=== PATIENT | female | born 1990 | race Caucasian/White ===

== ENCOUNTER → 2018-11-26 12:29 | Outpatient (CLI) | payer OTHER, SELFPAY ==
[2018-11-26 13:02] LABS: Add Manual Diff / Slide Review NO; Basophils Absolute Auto 100 /uL (0-100); Basophils Percent Auto 0.5 % (0-2); Eosinophils Absolute Auto 100 /uL (0-450); Eosinophils Percent Auto 0.5 % (2-4); Hematocrit 36.1 % (36-46); Hemoglobin 12.4 g/dL (12.0-16.0); Lymphocytes Absolute Auto 2700 /uL (1100-4500); Lymphocytes Percent Auto 24.6 % (25-40); Mean Corpuscular HGB Conc 34.3 % (30-36); Mean Corpuscular Hemoglobin 29.9 PG (26-34); Mean Corpuscular Volume 87.2 fL (80-100); Monocytes Absolute Auto 700 /uL (0-900); Monocytes Percent Auto 6.4 % (3-14); Neutrophils Absolute Auto 7400 /uL (1500-7000); Platelet Count 307 X10^3/uL (150-400); Red Blood Cell Count 4.14 X10^6/uL (4.0-5.2); Red Cell Distribution Width 12.7 % (11.6-14.8); White Blood Cell Count 10.9 X10^3/uL (4.5-11.0)
[2018-11-26 14:05] LABS: Appearance Urine UA CLEAR; Bilirubin Urine UA NEGATIVE (NEGATIVE); Color Urine UA YELLOW; Glucose Urine UA NEGATIVE (Negative); Ketones Urine UA 1+ (NEGATIVE); Leukocyte Esterase Urine UA NEGATIVE (NEGATIVE); Nitrite Urine UA NEGATIVE (Negative); Occult Blood Urine UA 2+ (Negative); Protein Urine UA NEGATIVE (Negative); Specific Gravity Urine UA <=1.005 (1.000-1.035); Urobilinogen Urine UA 0.2 E.U./dL (0.2)
[2018-11-26 14:06] LABS: pH Urine UA 5.5 (4.5-8.0)
[2018-11-26 15:51] LABS: Hepatitis B Surface Antigen NEGATIVE s/c (NEGATIVE); Rubella Antibody IgG 20.4 IU/mL (>15)
[2018-11-26 16:48] LABS: HIV 1 & 2 Ab/Ag 4th Gen Combo NEGATIVE (NEGATIVE); Hep C Virus Ab w/Reflex Quant NEGATIVE s/c (NEGATIVE)
[2018-11-30 14:23] LABS: RPR Screen Nonreactive (Nonreactive)
== END ==
PROVIDERS: Visit Provider Obstetrics & Gynecology
DX: Z34.01 Encounter for supervision of normal first pregnancy, first trimester (principal)
CPT/HCPCS: 36415; 80055; 81003; 86787; 86803; 86850; 86900; 86901; 87086; 87389

== ENCOUNTER → 2019-01-26 14:37 | Outpatient (CLI) | payer OTHER, SELFPAY ==
[2019-02-01 20:35] LABS: AFP, Serum 27.2 ng/mL; Brief History NOT GIVEN; Calc Gestational Age 15.7; Est Date Determined by free009; Maternal Weight 181 (LBS) lbs; Mother Ethnic Origin free010; Number of Fetuses free011; Prev Pregnancies Down Syndrome free016
== END ==
PROVIDERS: Visit Provider Obstetrics & Gynecology
DX: Z34.02 Encounter for supervision of normal first pregnancy, second trimester (principal); Z3A.15 15 weeks gestation of pregnancy
CPT/HCPCS: 36415; 82105

== ENCOUNTER → 2019-03-04 12:11 | Outpatient (CLI) | payer OTHER, SELFPAY ==
--- NOTE | 2019-03-04 12:12 | DI.US.S_ITS ---
PROCEDURE: US OB >= 14 WEEKS FETUS INDICATIONS: ANATOMY SCAN OUTSIDE/PRIOR DATING DATA: Last menstrual period (LMP): Unknown. LMP-based estimated date of delivery (LORRI): Unknown. First dating scan (date and location): 11/26/18. Estimated date of delivery (LORRI) from first dating scan: 07/15/19. TECHNIQUE: Real-time scanning was performed of the fetus, with image documentation and biometric measurements. Endovaginal scanning: Not performed COMPARISON: [facility], , OB <= 14 WEEKS FETUS, 12/22/2018, 14:10. [facility], , OB <= 14 WEEKS FETUS, 11/26/2018, 12:05. FINDINGS: General: A single living intrauterine gestation is present. Presentation: Vertex. Placenta: Placental position is posterior, without previa. Amniotic fluid index: 15.2 cm, normal range is 5-24 cm. heart rate: 149 beats per minute. Maternal cervical canal: 3.3 cm long. Normal lower limit is 2.5 cm. biometrics: Biparietal diameter: 5.4 cm, 22 weeks 2 days Head circumference: 19.4 cm, 21 weeks 5 days Abdominal circumference: 17.0 cm, 22 weeks zero days Femur length: 3.6 cm, 21 weeks 3 days Estimated gestational age from initial scan: 21 weeks zero days Composite gestational age from present scan: 21 weeks 5 days Estimated weight and percentile: 447 g, 83rd percentile Measurement variability for biometric dating: +/- 7 days from 14 weeks to 15 weeks 6 days gestation, +/- 10 days from 16 weeks to 21 weeks 6 days gestation, +/- 2 weeks from 22 weeks to 27 weeks 6 days gestation, +/- 3 weeks for 28 weeks gestation or later. weight reference: 4500 g or EFW >90/95% is considered macrosomia or large for gestational age. EFW <10% is small for gestational age. EFW 5% or less is considered intra-uterine growth restriction. Anatomic survey: Neuro: Ventricles are non-dilated at less than 10 mm. Cisterna magna is normal at 3-11 mm. Cerebellum is normal in size and morphology. Nuchal skin fold: Normal at less than 6 mm between 14-21 weeks gestational age. Face: Nose and lips within normal limits. However the facial profile not well-seen due to gestational position. Spine: No evidence for spina bifida. Heart: 4-chambered heart is present, with normal ventricular outflow tracts. Diaphragm: Diaphragm is intact. Stomach: Left-sided stomach is present. Kidneys: No hydronephrosis. Normal is less than 5 mm in 2nd trimester, less than 7 mm in 3rd trimester. Cord: 3-vessel cord has orthotopic insertion. Bladder: Normal in size. Extremities: All 4 extremities identified. IMPRESSION: Single living intrauterine fetus in vertex presentation demonstrating expected interval growth as above facial profile not well-seen due to gestational position . Recommend followup Remaining anatomic survey within normal limits. Dictated by: Elkin Thakur M.D. on 03/04/2019 at 17:03 Approved by: Elkin Thakur M.D. on 03/04/2019 at 17:07
== END ==
PROVIDERS: Visit Provider Obstetrics & Gynecology
DX: Z34.02 Encounter for supervision of normal first pregnancy, second trimester (principal); Z3A.21 21 weeks gestation of pregnancy
CPT/HCPCS: 76811

== ENCOUNTER → 2019-03-09 13:08 | Outpatient (CLI) | payer OTHER, SELFPAY ==
--- NOTE | 2019-03-09 13:09 | DI.US.S_ITS ---
PROCEDURE: US OB FOLLOW UP INDICATIONS: F/U face from anatomy scan OUTSIDE/PRIOR DATING DATA: Last menstrual period (LMP): Not available. LMP-based estimated date of delivery (LORRI): Not available. First dating scan (date and location): 11/26/18. Estimated date of delivery (LORRI) from first dating scan: 07/15/19. TECHNIQUE: Real-time scanning was performed of the fetus, with image documentation. Endovaginal scanning: Not needed COMPARISON: None. FINDINGS: A single living intrauterine gestation is present. Presentation: Breech. Placenta: Placental position is fundal posterior, without previa. Amniotic fluid index: 14.2 cm, normal range is 5-24 cm. heart rate: 140 beats per minute. Estimated gestational age from initial scan: 21 weeks 5 days. Completion of anatomic survey, excellent visualization of the facial area not well seen previously. IMPRESSION: Completion of anatomic survey, not well-seen on the prior study from 5 days ago. Dictated by: Uzair Mitchell M.D. on 03/09/2019 at 16:59 Approved by: Uzair Mitchell M.D. on 03/09/2019 at 17:00
== END ==
PROVIDERS: Visit Provider Obstetrics & Gynecology
DX: Z36.2 Encounter for other antenatal screening follow-up (principal); Z3A.21 21 weeks gestation of pregnancy
CPT/HCPCS: 76816

== ENCOUNTER → 2019-04-15 10:13 | Outpatient (CLI) | payer OTHER, SELFPAY ==
[2019-04-15 11:31] LABS: Hematocrit 33.7 % (36-46); Hemoglobin 11.3 g/dL (12.0-16.0)
[2019-04-15 11:45] LABS: GTT (PREG) 1 Hour PP 50gm Dose 85 mg/dL (76-139)
== END ==
PROVIDERS: Referring Provider Obstetrics & Gynecology; Visit Provider Obstetrics & Gynecology
DX: Z34.02 Encounter for supervision of normal first pregnancy, second trimester (principal); Z3A.27 27 weeks gestation of pregnancy
CPT/HCPCS: 36415; 82950; 85014; 85018

== ENCOUNTER → 2019-06-15 11:09 | Outpatient (CLI) | payer OTHER, SELFPAY ==
[2019-06-16 09:38] LABS: Strep Grp B PCR NEG for Grp B Strep
== END ==
PROVIDERS: Visit Provider Obstetrics & Gynecology
DX: Z34.03 Encounter for supervision of normal first pregnancy, third trimester (principal); Z3A.35 35 weeks gestation of pregnancy
CPT/HCPCS: 87653

== ENCOUNTER → 2019-06-15 12:32 | Outpatient (CLI) | payer OTHER, SELFPAY ==
--- NOTE | 2019-06-15 12:34 | DI.US.S_ITS ---
PROCEDURE: US PERIPH VENOUS LOW EXTREM RT INDICATIONS: RIGHT LEG EDEMA TECHNIQUE: Real-time imaging, as well as color and pulse Doppler interrogation, were performed of the lower extremity deep veins from the inguinal ligament to the popliteal fossa. COMPARISON: None. FINDINGS: The common femoral, femoral and popliteal veins are normally compressible, and free of intraluminal thrombus. Color and pulse Doppler demonstrate normal phasic intraluminal flow. There is normal augmentation response to distal compression maneuver. IMPRESSION: No evidence of a right lower extremity deep vein thrombosis. Dictated by: Gus Watson M.D. on 06/15/2019 at 12:12 Approved by: Gus Watson M.D. on 06/15/2019 at 12:12
== END ==
PROVIDERS: Referring Provider Obstetrics & Gynecology; Visit Provider Obstetrics & Gynecology
DX: O99.89 Other specified diseases and conditions complicating pregnancy, childbirth and the puerperium (principal); M79.89 Other specified soft tissue disorders; Z3A.35 35 weeks gestation of pregnancy
CPT/HCPCS: 87653; 93971

== ENCOUNTER 2019-06-24 08:28 | Outpatient (CLI) | payer OTHER, SELFPAY ==
--- NOTE | 2019-06-27 17:17 | PM.OBTRLD ---
Visit Information Visit Information Date of evaluation: 06/24/19 Primary OB Provider: Tonya Fan Reason for Evaluation: Yes non-stress test Comments/Additional reasons for admission: Sent for NST due to question of decel vs. marked variability, with no obstetric complaints and an otherwise reassuring BPP. PFSH Social History marital status: Smoking Status: Never smoker Evaluation Evaluation Baseline heart rate: 120 Variability: Moderate (11-25) monitor accelerations: Present monitor decelerations: Absent Category of Tracing: I Diagnosis, Plan/Disposition Plan/Disposition Plan: Home with routine follow up. OB Disposition: home
== END 2019-06-24 09:10 | disposition home or self-care (01) ==
LOC: LABOR 09:02 → OB 06-25 09:25
PROVIDERS: Referring Provider Obstetrics & Gynecology; Visit Provider Obstetrics & Gynecology
DX: O32.1XX0 Maternal care for breech presentation, not applicable or unspecified (principal); Z3A.37 37 weeks gestation of pregnancy
CPT/HCPCS: 59025; G0378; G0379

== ENCOUNTER 2019-06-29 07:11 | Outpatient (CLI) | payer OTHER, SELFPAY ==
[2019-06-29] MEDS: TERBUTALINE 1 MG/ML VIAL 0.25 MG SUBCUT (07:45)
--- NOTE | 2019-06-29 07:47 | P.HPOB_ITS ---
OB HPI Date/Time Date of admission: 06/29/19 Date Patient Seen: 06/29/19 Time Patient Seen: 07:30 History of Present Condition Chief complaint: OBSERVATION : 1 Para: 0 Estimated Date of Delivery: 07/15/19 Estimated Gestational Age (weeks): 37 Narrative: Sada Manzo is a 29 year old @37+5 with breech fetus, presenting for scheduled attempted external cephalic version with no complaints obstetrical or otherwise. She reports occasional rare contractions, no vaginal bleeding or loss of fluid, and normal movement. Her has been otherwise uncomplicated, and she has no contributory medical, surgical, insurance coordinator, or family history. History of Present care: good care Dating criteria: LMP confirmed by 1st trimester US Ultrasounds: normal 1st trimester US and normal mid trimester US Obstetrical complications: none Medical complications: none Preadmission Labs Blood type: O (+) positive -: Antibody screen: negative, GBS status: negative, HBsAG: negative, HIV: negative and RPR/VDLR: negative -: Chlamydia screen: not detected and Gonorrhea screen: not detected -: Rubella: immune and Varicella: immune PAP: Normal 1 hr GTT: 85 Evaluation Evaluation Baseline heart rate: 130 Variability: Moderate (11-25) monitor accelerations: Present monitor decelerations: Absent Category of Tracing: I Comments: complete breech presentation with head in RUQ, confirmed on [facility] Medical History Breast lump in female (Acute) Chicken pox (Resolved ~1992) Eczema (Acute) Measles (Resolved ~1988) Vision disorder (Chronic) Surgical History Anesthesia (Resolved) History of removal of cyst (Resolved ~2016) History of tonsillectomy and adenoidectomy (Resolved ~1993) [place] teeth removed (Resolved ~2004) Family History Mother Endometriosis Asthma Hypothyroid Grandmother Cancer Social History marital status: Smoking Status: Never smoker Meds Home Medications and Allergies Home Medications Medication Instructions Recorded Confirmed Type prenat.vits,jessica,[id number] 1 tab PO DAILY 11/17/18 05/18/19 History Allergies Allergy/AdvReac Type Severity Reaction Status Date / Time No Known Drug Allergies Allergy Verified 05/18/19 10:20 Review of Systems Constitutional Constitutional: Reports system reviewed and no additional complaints, except as documented Cardiovascular Cardiovascular: Reports system reviewed; no additional complaints, except as documented Respiratory Respiratory: Reports system reviewed and no additional complaints, except as documented Gastrointestinal Gastrointestinal: Reports system reviewed and no additional complaints, except as documented Genitourinary Genitourinary: Reports system reviewed and no additional complaints, except as documented Assessment and Plan Assessment and Plan Assessment and Plan narrative: This patient was admitted for attempted ECV after 0.25mg of terbutaline administration. The attempted ECV was unsuccessful, with minimal movement of the vertex achieved despite elevation of the breech out of the pelvis. The patient tolerated the attempts well, and the fetus remained in breech presentation on ultrasound. Monitoring was performed for one hour after the attempt, with cat 1 reactive monitoring, no contractions on toco, and no other complaints. Antepartum precautions were reviewed, and she will be scheduled for primary CS for breech in her 39th week. Time Spent with Patient Total time spent with greater than 50% in coordination of care (as documented) at patient's floor/unit and/or counseling patient:: 25 - 35 minutes
== END 2019-06-29 09:09 | disposition home or self-care (01) ==
LOC: OB 12:39
PROVIDERS: Referring Provider Obstetrics & Gynecology; Visit Provider Obstetrics & Gynecology
DX: O32.1XX0 Maternal care for breech presentation, not applicable or unspecified (principal); Z3A.37 37 weeks gestation of pregnancy
CPT/HCPCS: 59025; 59412; 76815; 96372; G0378; G0379

== ENCOUNTER 2019-07-01 03:04 | Inpatient (IN) | payer OTHER, SELFPAY ==
[2019-07-01] VITALS (7 sets, daily range): BP systolic 99–116; BP diastolic 58–69; PULSE 56–63; RESP 10–13; TEMP 36.2; O2SAT 97–99
--- NOTE | 2019-07-01 03:07 | P.HPOB_ITS ---
OB HPI Date/Time Date of admission: 07/01/19 Date Patient Seen: 07/01/19 Time Patient Seen: 03:16 History of Present Condition Chief complaint: evaluation of labor : 1 Para: 0 Estimated Date of Delivery: 07/15/19 Estimated Gestational Age (weeks): 38 Narrative: Sada Manzo is a 29 year old @38+0 with breech fetus, presenting after rupture of membranes one hour ago with ongoing leakage of clear fluid. She reports decreased movement and increasing contractions since that time, but no other complaints obstetrical or otherwise. Her has been otherwise uncomplicated, and she has no contributory medical, surgical, internal controls specialist, or family history. Indications Operative indications ( section): breech presentation History of Present care: good care Dating criteria: LMP confirmed by 1st trimester US Ultrasounds: normal 1st trimester US and normal mid trimester US Obstetrical complications: none Medical complications: none Preadmission Labs Blood type: A (+) positive -: Antibody screen: negative, GBS status: negative, HBsAG: negative, HIV: negative and RPR/VDLR: negative -: Chlamydia screen: not detected and Gonorrhea screen: not detected -: Rubella: immune and Varicella: immune 1 hr GTT: 85 Evaluation Evaluation Baseline heart rate: 120 Variability: Moderate (11-25) monitor accelerations: Present monitor decelerations: Absent Category of Tracing: I PFSH Medical History Breast lump in female (Acute) Chicken pox (Resolved ~1992) Eczema (Acute) Measles (Resolved ~1988) Vision disorder (Chronic) Surgical History Anesthesia (Resolved) History of removal of cyst (Resolved ~2016) History of tonsillectomy and adenoidectomy (Resolved ~1993) [place] teeth removed (Resolved ~2004) Family History Mother Endometriosis Asthma Hypothyroid Grandmother Cancer Social History marital status: Smoking Status: Never smoker Meds Home Medications and Allergies Home Medications Medication Instructions Recorded Confirmed Type prenat.vits,jessica,[id number] 1 tab PO DAILY 11/17/18 05/18/19 History Allergies Allergy/AdvReac Type Severity Reaction Status Date / Time No Known Drug Allergies Allergy Verified 05/18/19 10:20 Review of Systems Constitutional Constitutional: Reports system reviewed and no additional complaints, except as documented Cardiovascular Cardiovascular: Reports system reviewed; no additional complaints, except as documented Respiratory Respiratory: Reports system reviewed and no additional complaints, except as d ocumented Gastrointestinal Gastrointestinal: Reports system reviewed and no additional complaints, except as documented Genitourinary Genitourinary: Reports as per HPI Neurologic Neurologic: Reports system reviewed and no additional complaints, except as documented Exam Vital Signs (past 8 hours): 123/75, HR 74 Const General: cooperative, healthy appearing and comfortable GI Palpation: soft and No tender Other: Leaking clear fluid. Breech presentation confirmed on bedside ultrasound. Skin General: no rashes or lesions noted Assessment and Plan Assessment and Plan Assessment and Plan narrative: This patient presents ruptured, at 38+0 and with breech presentation confirmed on ultrasound. Patient reports decreased movement and is beginning to contract, and will be taken for primary section. Risk of infection, hemorrhage, and damage to surrounding organs was discussed, along with the recommendation for section in the setting of breech presentation. All questions were answered, and the patient vocalized understanding.
[2019-07-01 03:58] LABS: Add Manual Diff / Slide Review NO; Basophils Absolute Auto 100 /uL (0-100); Basophils Percent Auto 0.7 % (0-2); Eosinophils Absolute Auto 200 /uL (0-450); Eosinophils Percent Auto 1.6 % (2-4); Hemoglobin 12.1 g/dL (12.0-16.0); Lymphocytes Absolute Auto 2400 /uL (1100-4500); Lymphocytes Percent Auto 18.7 % (25-40); Mean Corpuscular HGB Conc 34.6 % (30-36); Mean Corpuscular Hemoglobin 31.4 PG (26-34); Mean Corpuscular Volume 90.5 fL (80-100); Monocytes Absolute Auto 800 /uL (0-900); Monocytes Percent Auto 6.4 % (3-14); Neutrophils Absolute Auto 9400 /uL (1500-7000); Neutrophils Percent Auto 72.6 % (50-75); Platelet Count 202 X10^3/uL (150-400); Red Blood Cell Count 3.87 X10^6/uL (4.0-5.2); Red Cell Distribution Width 13.3 % (11.6-14.8)
[2019-07-01 04:41] LABS: COVID19 -Nasal RAPID Negative (Negative)
[2019-07-01] MEDS: CEFAZOLIN 2 GM/100 ML FROZ.PIGGY IV (05:04)
--- NOTE | 2019-07-01 05:41 | SUR.OPER ---
Supine on Padded OR bed, head on pillow, safety belt at thigh, arms secured on padded arm boards at <90 degrees abduction. Bump under right buttock. Legs uncrossed with pillow under knees, gel pad to heels, tape over blanket to lower legs.
--- NOTE | 2019-07-01 05:44 | SUR.OPER ---
Viable female delivered at 0528. Cord blood and placenta sent with L&D nurse.
--- NOTE | 2019-07-01 06:56 | SUR.PHASEI ---
0650 to center Rm 2. bed down and locked, call light within reach. Spouse and baby in the room, talking with the patient. She is A&O, pleasant, good color, tolerated procedure very well. SCDs on by BC RN. VSS; Stable. 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
--- NOTE | 2019-07-01 08:31 | PM.OP.1 ---
Operative Date/Time/Diagnoses Date of procedure: 07/01/19 Time of procedure: 05:15 Pre-op diagnosis: breech presentation at term, PROM Post-op diagnosis: same Procedure & Clinicians Procedure: Primary section Same procedure as scheduled: Yes Indications: term, breech, PROM Surgeon: Tonya Fan Agriculture Consultant: Eliane Brand Anesthesia Type: Spinal Operative Notes Findings: Normal tubes and ovaries. 3cm uterine septum, with enlarged left horn c/w position of fetus. Closure Type: primary Specimen(s): none sent Estimated Blood Loss (mL): 500 Blood products transfused: none Procedure in detail: EBL: 500ccs Fluids:900ccs UOP: 600ccs Findings: Female infant in double footling breech presentation, Apgars 9+9, weight 6#11, normal uterus, tubes, ovaries. Procedures: The patient was taken to the operating room where spinal anesthesia was placed. She was prepped and draped in the normal sterile fashion in the dorsal supine position with a leftward tilt. A Pfannenstiel skin incision was made with a scalpel and carried through to the underlying layer of fascia. The fascia was incised in the midline and the incision extended laterally with Fuller scissors. The inferior aspect of this incision was grasped with Kristin clamps, elevated. and the underlying rectus muscles dissected off bluntly. Attention was then turned to the superior aspect of this incision which, in a similar fashion, was grasped, tented up with the Kristin clamps, and the rectus muscles dissected off bluntly. The rectus muscles were then in the midline, and the peritoneum identified, tented up, and entered bluntly. The peritoneal incision was extended superiorly and inferiorly with good visualization of the bladder. The bladder blade was inserted and the vesicouterine peritoneum identified, grasped with pickups, and entered sharply with the Metzenbaum scissors. This incision was extended laterally, and the bladder flap created digitally. The bladder blade was then reinserted and the lower uterine segment incised in transverse fashion with the scalpel. The uterine incision was bluntly extended laterally. The bladder blade was removed, and the 's feet delivered. The body was carefully brought through the incision to the level of the scalpula, and the fetus was delivered with the usual breech maneuvers without presentation, delivering through a loose nuchal cord. After 45 seconds of delayed cord clamping, the cord was clamped and cut. The nose and mouth were suctioned as needed with a bulb synringe, and the was handed off to awaiting pediatricians. The placenta was then removed spontaneously, and the uterus was exteriorized and cleared of all clots and debris. The uterine incision was repaired with 1-0 chromic in a running, locked fashion a 2nd layer of the same suture was used to obtain excellent hemostasis. The uterus was returned to the abdomen, and the gutters were cleared of all clots and debris. The bladder flap was repaired with 2-0 vicryl. The peritoneum was closed with 3-0 Vicryl, and the fascia reapproximated with 0 Vicryl in a running fashion. The subcutaneous layer was placed with 3 0 Vicryl in an interrupted fashion and the skin was closed with 4-0 biosyn in a running fashion. The patient tolerated the procedure well, sponge lap and needle counts were correct x2. 2 g of Ancef were given at commencement of the case. The patient was taken to the recovery room in stable condition. Complications: none Post-operative Condition: stable Disposition: PACU Plan for aftercare: Routine post-CS care
[2019-07-01] MEDS: LACTATED RINGERS 1,000 ML 100 ML IV (08:35)
[2019-07-01] MEDS: PRENATAL VIT,CALC/IRON/FOLIC 1 TABLET 1 TAB PO (08:36)
[2019-07-01] MEDS: DOCUSATE 250 MG CAPSULE PO (08:36)
[2019-07-01] MEDS: LANOLIN OINT 7 GM 1 APPLIC TOP (10:20)
[2019-07-01] MEDS: OXYCODONE IR 5 MG TABLET PO (10:21)
[2019-07-01] MEDS: KETOROLAC 30 MG/ML VIAL IV ×2 (12:52→20:08)
[2019-07-02] MEDS: KETOROLAC 30 MG/ML VIAL IV (02:03)
[2019-07-02 07:00] LABS: Hematocrit 33.7 % (36-46); Hemoglobin 11.6 g/dL (12.0-16.0)
[2019-07-02] MEDS: DOCUSATE 250 MG CAPSULE PO (08:42)
[2019-07-02] MEDS: PRENATAL VIT,CALC/IRON/FOLIC 1 TABLET 1 TAB PO (08:43)
[2019-07-02] MEDS: IBUPROFEN 600 MG TABLET PO ×3 (08:43→20:04)
--- NOTE | 2019-07-02 10:42 | P.PNOB_ITS ---
Subjective - OB Subjective Patient comments: no complaints, pain well controlled, incisional pain, tolerating diet and flatus present baby status: doing well [place] feeding status: exclusively breast feeding Narrative: Patient reports feeling well with mild incisional pain controlled with motrin. Ambulating, tolerating PO, voiding, passing flatus, moderate lochia, no JACKMAN, visual changes, SOB, or any other complaints. Date Patient Seen: 07/02/19 Time Patient Seen: 10:42 Exam Vital Signs (past 8 hours): 102/55, HR 64, T 98.3F Oxygen Delivery Method Room Air Const General: cooperative, healthy appearing and comfortable Resp Effort & Inspection: normal respiratory effort Auscultation: clear to auscultation bilaterally Cardio Rate: regular rate Rhythm: regular rhythm GI Palpation: soft and No tender Other: fundus firm, well below u. No distention. Skin General: no rashes or lesions noted Objective Labs Result Diagrams: 07/02/19 06:45 Labs: Laboratory Results - last 24 hr 07/02/19 06:45 Hgb 11.6 L Hct 33.7 L Assessment & Plan Plan day: 1 plan OB: routine postop care Comments: This patient is doing well, POD#1 as delivered at 5 AM on 06/30. The patient is meeting all postoperative goals, and is considering discharge home this evening vs tomorrow morning. We discussed reevaluation of maternal and status at dinner time with discussion of discharge at that time. Time Spent With Patient Time: Total time spent is greater than 50% in coordination of care (as documented) at patient's floor/unit and/or counseling patient: Time with patient: 25 - 35 minutes
[2019-07-02] MEDS: OXYCODONE IR 5 MG TABLET PO (16:45)
--- NOTE | 2019-07-02 17:28 | P.DS_ITS ---
Discharge Providers Provider Date of admission: 07/01/19 03:04 Discharge Date: 07/02/19 Consults: 07/01/19 07:49 Consult to [employer]ze Routine Comment: Discharge provider: Tonya Fan MD Summary Hospital Course Date Patient Seen: 07/02/19 Time Patient Seen: 17:28 Procedures: primary section Hospital Course: This patient presented at 38 weeks with known breech presentation and ruptured membranes, and was taken for primary section. She was found to have a uterine septum, but the section and postoperative course was otherwise uncomplicated, and she was discharged on the evening of POD#1 with routine precautions. Peripartum Data Infant Delivery Method: Section complications: none 1: Gender: Female Disposition of : home Discharge Diagnosis (1) delivery delivered: Status: Acute Status at Discharge Cognitive/behavioral status at discharge: oriented Functional status at discharge: independent ambulation Overall status at discharge: patient is back to baseline Time Spent with Patient Time attestation: Total time spent providing and/or coordinating discharge services: Time spent: Greater than 30 minutes Objective Labs Result Diagrams: 07/02/19 06:45 Labs: Laboratory Results - last 24 hr 07/02/19 06:45 Hgb 11.6 L Hct 33.7 L Exam Vital Signs (past 8 hours): Oxygen Delivery Method Room Air Discharge Plan Discharge Plan Patient Disposition: Home Discharge orders & Medications Prescriptions: New ibuprofen 600 mg tablet 600 mg PO Q6H PRN (Reason: delivery) Qty: 30 RF: 0 oxycodone 5 mg tablet 5 mg PO Q6H PRN (Reason: pain) Qty: 20 RF: 0 Continued prenat.vits,jessica,[id number] Tablet 1 tab PO DAILY RF: 0 Follow up/Referrals: Tonya Fan MD [Physician] - 1 Week Diet/Activity/Treatments Diet: Regular Activity: Nothing in the vagina for 6 weeks. Avoid lifting more than 10 lbs for 6 weeks. If you have increasing bleeding, pain, fevers, chills, headaches, nausea, vomiting, visual changes, or any other complaints, call the clinic or come to the ED. Skin/Wound/Dressing Care Report to your healthcare provider any signs of infection, such as:: chills, fever, night sweats, increased pain, unusual drainage and unusual redness Visit Report/Discharge Packet Instructions: DI for
[2019-07-02 19:00] VITALS: BP 111/71; PULSE 66; RESP 16; TEMP 36.7
== END 2019-07-02 20:35 | disposition home or self-care (01) | DRG 786 ==
PROVIDERS: Family Medicine; Admitting Provider Obstetrics & Gynecology; Referring Provider Obstetrics & Gynecology; Visit Provider Obstetrics & Gynecology
PROC: 10D00Z1 Extraction of Products of Conception, Low, Open Approach (ICD-10-PCS; CPT 59514; principal; 2019-07-01 03:55)
DX: O64.8XX0 Obstructed labor due to other malposition and malpresentation, not applicable or unspecified (principal); O60.14X0 Preterm labor third trimester with preterm delivery third trimester, not applicable or unspecified; Z3A.38 38 weeks gestation of pregnancy; Z37.0 Single live birth
CPT/HCPCS: 36415; 59025; 59050; 59412; 59510; 59514; 76815; 85014; 85018; 85025; 86850; 86900; 86901; 87635; 96372; G0379; J0690; J1885; J2274; J2590

== ENCOUNTER → 2020-04-20 08:13 | Outpatient (CLI) | payer OTHER, SELFPAY ==
[2020-04-20] MEDS: COVID-19 VACC, Ad26(JANSSEN)/PF 0.5 ML IM (08:28)
== END ==
PROVIDERS: PCP Family Medicine; Visit Provider Internal Medicine
DX: Z23 Encounter for immunization (principal)
CPT/HCPCS: 0031A; 91303

== ENCOUNTER → 2021-10-11 09:54 | Outpatient (CLI) | payer OTHER, SELFPAY ==
[2021-10-11 10:27] LABS: Appearance Urine UA CLEAR; Bilirubin Urine UA NEGATIVE (NEGATIVE); Color Urine UA YELLOW; Glucose Urine UA TRACE g/dL (Negative); Ketones Urine UA NEGATIVE (NEGATIVE); Leukocyte Esterase Urine UA NEGATIVE (NEGATIVE); Nitrite Urine UA NEGATIVE (Negative); Occult Blood Urine UA 1+ (Negative); Protein Urine UA NEGATIVE (Negative); Specific Gravity Urine UA 1.015 (1.000-1.035); Urobilinogen Urine UA 0.2 E.U./dL (0.2)
[2021-10-11 10:33] LABS: Bacteria Urine None Seen; RBC Urine 1-5/HPF (0-5/HPF); WBC Urine None Seen (0-5/HPF)
[2021-10-11 10:36] LABS: Add Manual Diff / Slide Review NO; Basophils Absolute Auto 0 /uL (0-100); Basophils Percent Auto 0.3 % (0-2); Eosinophils Absolute Auto 100 /uL (0-450); Eosinophils Percent Auto 1.2 % (2-4); Hematocrit 37.1 % (36-46); Hemoglobin 12.7 g/dL (12.0-16.0); Lymphocytes Absolute Auto 2000 /uL (1100-4500); Lymphocytes Percent Auto 26.1 % (25-40); Mean Corpuscular HGB Conc 34.2 % (30-36); Mean Corpuscular Hemoglobin 29.5 PG (26-34); Mean Corpuscular Volume 86.5 fL (80-100); Monocytes Absolute Auto 500 /uL (0-900); Monocytes Percent Auto 7.1 % (3-14); Neutrophils Absolute Auto 5000 /uL (1500-7000); Neutrophils Percent Auto 65.3 % (50-75); Platelet Count 250 X10^3/uL (150-400); Red Blood Cell Count 4.29 X10^6/uL (4.0-5.2); Red Cell Distribution Width 12.9 % (11.6-14.8); White Blood Cell Count 7.6 X10^3/uL (4.5-11.0)
[2021-10-11 16:15] LABS: HIV 1 & 2 Ab/Ag 4th Gen Combo NEGATIVE (NEGATIVE); Hep C Virus Ab w/Reflex Quant NEGATIVE s/c (NEGATIVE); Hepatitis B Surface Antigen NEGATIVE s/c (NEGATIVE)
[2021-10-12 07:47] LABS: RPR Screen Non Reactive (Non Reactive)
[2021-10-12 08:08] LABS: Varicella IgG Antibody 2536 index (Immune >165)
== END ==
PROVIDERS: PCP Family Medicine; Referring Provider Family Medicine; Visit Provider Family Medicine
DX: Z34.81 Encounter for supervision of other normal pregnancy, first trimester (principal)
CPT/HCPCS: 36415; 80055; 81003; 81015; 86787; 86803; 86850; 86900; 86901; 87389

== ENCOUNTER → 2021-12-06 09:20 | Outpatient (CLI) | payer OTHER, SELFPAY ==
--- NOTE | 2021-12-06 09:21 | DI.US.S_ITS ---
PROCEDURE: US OB >= 14 WEEKS FETUS INDICATIONS: ANATOMY OUTSIDE/PRIOR DATING DATA: Last menstrual period (LMP): 07/17/2021 LMP-based estimated date of delivery (LORRI): 04/23/2022 First dating scan (date and location): 12/06/2021 Estimated date of delivery (LORRI) from first dating scan: 04/22/2022 The calculations are made using the clinical LORRI of 04/23/2022. TECHNIQUE: Real-time scanning was performed of the fetus, with image documentation and biometric measurements. Endovaginal scanning: Not performed. COMPARISON: [facility], , OB <= 14 WEEKS FETUS, 11/26/2018, 12:05. [facility], , OB >= 14 WEEKS FETUS, 06/24/2019, 8:11. FINDINGS: General: A single living intrauterine gestation is present. Presentation: Variable Placenta: Placental position is anterior right, without previa. Amniotic fluid index: 15.4 cm, normal range is 5-24 cm. Single deepest vertical pocket is 4.8 cm. heart rate: 143 beats per minute. Maternal cervical canal: 4.4 cm long. Normal lower limit is 2.5 cm. biometrics: Biparietal diameter: 4.9 cm, 20 weeks 6 days Head circumference: 18.1 cm, 20 weeks 3 days Abdominal circumference: 14.9 cm, 20 weeks 1 day Femur length: 3.2 cm, 20 weeks 0 days Clinically estimated gestational age: 20 weeks 2 days Composite gestational age from present scan: 20 weeks 3 days Estimated weight and percentile: 337 grams, 39th percentile Anatomic survey: Neuro: Ventricles are non-dilated at less than 10 mm. Cisterna magna is normal at 3-11 mm. Cerebellum is normal in size and morphology. Nuchal skin fold: Normal at less than 6 mm between 14-21 weeks gestational age. Face: Nose and lips, facial profile are normal. Spine: No evidence for spina bifida. Heart: 4-chambered heart is present, with normal ventricular outflow tracts. Diaphragm: Diaphragm is intact. Stomach: Left-sided stomach is present. Kidneys: No hydronephrosis. Normal is less than 5 mm in 2nd trimester, less than 7 mm in 3rd trimester. Cord: 3-vessel cord with normal insertion. Placental insertion is approximately 1.5 cm from the superior left margin of the placenta. Bladder: Normal in size. Extremities: All 4 extremities identified. IMPRESSION: 1. Single live intrauterine . size is consistent with clinical dates. Estimated weight is 337 grams, thirty-ninth percentile for gestational age. 2. Suspected marginal insertion of the umbilical cord onto the placenta, located 1.5 cm from the placental edge. 3. Heterogeneous prominence of the left lateral aspect of the uterus measuring 8.2 x 3.4 x 1.6 cm, which is of uncertain etiology. Findings could represent a prior perigestational hemorrhage versus possibly uterine fibroid or even a separate uterine horn is the patient has a history of bicornuate uterus. We strive to produce accurate, complete, and clear reports of imaging services. To assist us in improving patient care, this report was composed using standard report templates and voice recognition software. Therefore, it may contain abnormal punctuation, insertions and/or omissions. Occasional wrong-word or sound-alike substitutions may occur. Though we review the report and make efforts to correct it, we do recommend that the report be read carefully in proper context to recognize any text inaccuracies. Approved by: Basim Burns M.D. on 12/06/2021 at 11:08
== END ==
PROVIDERS: PCP Family Medicine; Referring Provider Family Medicine; Visit Provider Family Medicine
DX: Z34.92 Encounter for supervision of normal pregnancy, unspecified, second trimester (principal); Z3A.20 20 weeks gestation of pregnancy
CPT/HCPCS: 76811

== ENCOUNTER → 2022-01-07 12:46 | Outpatient (CLI) | payer OTHER, SELFPAY ==
--- NOTE | 2022-01-07 12:47 | DI.US.S_ITS ---
PROCEDURE: US OB FOLLOW UP INDICATIONS: RE-EVALUATE PLACENTAL CORD INSERTION OUTSIDE/PRIOR DATING DATA: Last menstrual period (LMP): 07/17/2021 LMP-based estimated date of delivery (LORRI): 04/23/2022. First dating scan (date and location): 12/06/2021. Estimated date of delivery (LORRI) from first dating scan: 04/22/2022 Working LORRI is 04/23/2022. TECHNIQUE: Real-time scanning was performed of the fetus, with image documentation and biometric measurements. COMPARISON: [facility], US, OB >= 14 WEEKS FETUS, 12/06/2021, 9:32. FINDINGS: General: A single living intrauterine gestation is present. Presentation: Vertex. Placenta: Placental position is anterior , without previa. Amniotic fluid index: 19.5 cm, normal range is 5-24 cm. Single deepest vertical pocket is 5.8 cm. heart rate: 143 beats per minute. Maternal cervical canal: 4.4 cm long. Normal lower limit is 2.5 cm. Clinically estimated gestational age: 25 weeks 0 days Marginal placental cord insertion site 1.9 cm from the placental edge. IMPRESSION: 1. Single living IUP redemonstrated with age estimated at 25 weeks 0 days by prior ultrasound. 2. Marginal placental cord insertion redemonstrated with the insertion site roughly 1.9 cm from the placental edge which appears similar prior exam.. We strive to produce accurate, complete, and clear reports of imaging services. To assist us in improving patient care, this report was composed using standard report templates and voice recognition software. Therefore, it may contain abnormal punctuation, insertions and/or omissions. Occasional wrong-word or sound-alike substitutions may occur. Though we review the report and make efforts to correct it, we do recommend that the report be read carefully in proper context to recognize any text inaccuracies. Dictated by: Gonzales CAMPOS Interpreted: Karla Massey MD on 01/07/2022 at 14:03 Transcribed by: NATY on 01/07/2022 at 14:06 Approved by: Karla Massey M.D. on 01/07/2022 at 16:16
== END ==
PROVIDERS: PCP Family Medicine; Referring Provider Family Medicine; Visit Provider Family Medicine
DX: Z36.2 Encounter for other antenatal screening follow-up (principal); Z3A.25 25 weeks gestation of pregnancy
CPT/HCPCS: 76816

== ENCOUNTER → 2022-02-05 13:04 | Outpatient (CLI) | payer OTHER, SELFPAY ==
[2022-02-05 14:36] LABS: Add Manual Diff / Slide Review NO; Basophils Absolute Auto 0 /uL (0-100); Basophils Percent Auto 0.3 % (0-2); Eosinophils Absolute Auto 200 /uL (0-450); Eosinophils Percent Auto 1.5 % (2-4); Hematocrit 34.9 % (36-46); Hemoglobin 11.9 g/dL (12.0-16.0); Lymphocytes Absolute Auto 2000 /uL (1100-4500); Lymphocytes Percent Auto 16.2 % (25-40); Mean Corpuscular Hemoglobin 29.7 PG (26-34); Mean Corpuscular Volume 87.4 fL (80-100); Monocytes Absolute Auto 700 /uL (0-900); Monocytes Percent Auto 5.8 % (3-14); Neutrophils Absolute Auto 9600 /uL (1500-7000); Neutrophils Percent Auto 76.2 % (50-75); Platelet Count 254 X10^3/uL (150-400); Red Cell Distribution Width 13.6 % (11.6-14.8); White Blood Cell Count 12.6 X10^3/uL (4.5-11.0)
[2022-02-05 14:54] LABS: GTT (PREG) 1 Hour PP 50gm Dose 92 mg/dL (76-139)
== END ==
PROVIDERS: PCP Family Medicine; Referring Provider Family Medicine; Visit Provider Family Medicine
DX: Z34.92 Encounter for supervision of normal pregnancy, unspecified, second trimester (principal); Z3A.25 25 weeks gestation of pregnancy
CPT/HCPCS: 36415; 82950; 85025

== ENCOUNTER 2022-03-14 02:33 | Observation (INO) | payer OTHER, SELFPAY ==
--- NOTE | 2022-03-14 03:35 | P.TNLD_ITS ---
Visit Information Visit Information Date of evaluation: 03/14/22 Primary OB Provider: Eliane Brand On-call OB Provider: Mark Palma Reason for Evaluation: Yes rupture of membranes Comments/Additional reasons for admission: Sada is a 31 yo , LORRI 04/23/2022 presenting with spontaneous rupture membranes at 2:00 a.m. on the morning of 03/14/2022. Patient denies contractions and has good movement. course has been uneventful. Dating is based on a firm LMP with confirmatory 2nd trimester US. Patient has had a single prior section by low transverse cervical incision for PROM and b reech presentation at 38 weeks EGA. GBS status is unknown; GBS PCR submitted and pending. Amnisure is positive and exam c/w gross ROM. Vital Signs Vital Signs: BP: 121/63 P: 77 T: 36.8C PFSH Medical History (Updated 03/14/22 @ 04:00 by Mark Palma MD) Breast lump in female Chicken pox (~1992) Eczema Infection of toenail Measles (~1988) Vision disorder Surgical History (Updated 10/11/21 @ 10:16 by Eliane Brand MD) Anesthesia delivery delivered (~07/01/19) History of removal of cyst (~2016) History of tonsillectomy and adenoidectomy (~1993) Hx of section [place] teeth removed (~2004) Family History (Updated 10/03/21 @ 13:12 by Makayla Clement RN) Mother Endometriosis Asthma Hypothyroid Celiac disease Grandmother Breast cancer Sister Thyroid cancer Grandfather Diabetes mellitus Family/Other Melanoma Father Skin cancer Social History marital status: number of children: 1 household members: spouse lives independently: Yes housing: house pets and animals: Yes (1 dog, aware of toxo) education level: college (ekv's degree) 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) current occupational exposures/hazards: No special polo needs: No travel history: recent (domestic only) seatbelt use: always helmet use: Yes water heater temp set < 120 deg: Yes working smoke detector in home: Yes fire extinguisher in home: Yes carbon monox detector in home: Yes firearms in home: Yes firearms unloaded and locked: Yes do you feel safe at home: Yes Smoking Status: Never smoker second hand exposure: No alcohol intake: former (1-2/week when not ) substance use type: does not use during the past year weight has: increased > 10 lbs well-balanced diet: daily or most days daily servings fruits/ve-4 caffeine: Yes Type(s) of exercise: walking and weight lifting frequency: 3-4 times per week Exam HENMT Head: normal to inspection, normocephalic and atraumatic Ears: hearing grossly normal bilaterally Nose: external nose normal Face and sinus: normal facial exam Eyes General: appearance normal, both eyes and all related structures Conjunctivae: conjunctivae normal Sclera: sclerae normal EOM: EOM intact bilaterally Neck Neck: normal visual inspection Resp Effort & Inspection: normal respiratory effort and able to speak in complete sentences GI Inspection: normal to inspection Palpation: soft and no hepatosplenomegaly Uterus Location (Fundal Height): 34 Presentation: vertex Estimated Weight (lbs): 4 Amniotic Fluid: clear Other: AmniSure +, gross ROM Extrem Right lower extremity: normal to inspection Evaluation Evaluation Baseline heart rate: 135 Variability: Average (6-10) monitor accelerations: Present Monitor Decelerations: Episodic and Variable Contraction Frequency (minutes): 8 Uterine Contraction Intensity: Mild Category of Tracing: Reactive Status: Category l Cervical dilation (cm): 1 Cervical effacement (%): 50 station: -3 Non-invasive Membranes Rupture Test: positive Diagnosis, Plan/Disposition Final Diagnosis (1) Hx of section: Status: Acute (2) premature rupture of membranes (PPROM) delivered, current hospitalization: Status: Acute (3) : Status: Acute Problem details: Currently 34+2 wks EGA Plan/Disposition Plan: Bedside US confirms vertex presentation GBS PCR pending Discussed with accepting physician at [facility] Dr. Helga Gil, who accepts the patient in transfer via POV. OB Disposition: tertiary care transfer
[2022-03-14 04:58] LABS: Strep Grp B PCR NEG for Grp B Strep
== END 2022-03-14 04:19 | disposition home or self-care (01) ==
LOC: LABOR 02:34
PROVIDERS: Admitting Provider Obstetrics & Gynecology; PCP Family Medicine; Referring Provider Obstetrics & Gynecology; Visit Provider Obstetrics & Gynecology
DX: O42.913 Preterm premature rupture of membranes, unspecified as to length of time between rupture and onset of labor, third trimester (principal); Z3A.34 34 weeks gestation of pregnancy; Z98.891 History of uterine scar from previous surgery
CPT/HCPCS: 59025; 59050; 76815; 84112; 87081; 87653; G0378; G0379

== ENCOUNTER → 2023-09-29 10:12 | Outpatient (CLI) | payer OTHER, SELFPAY ==
[2023-09-29 10:30] LABS: Add Manual Diff / Slide Review NO; Basophils Absolute Auto 0 /uL (0-100); Basophils Percent Auto 0.7 % (0-2); Eosinophils Absolute Auto 300 /uL (0-450); Eosinophils Percent Auto 4.7 % (2-4); Hematocrit 36.4 % (36-46); Hemoglobin 12.3 g/dL (12.0-16.0); Lymphocytes Absolute Auto 2700 /uL (1100-4500); Lymphocytes Percent Auto 40.2 % (25-40); Mean Corpuscular HGB Conc 33.9 % (30-36); Mean Corpuscular Hemoglobin 29.1 PG (26-34); Mean Corpuscular Volume 85.9 fL (80-100); Monocytes Absolute Auto 400 /uL (0-900); Monocytes Percent Auto 6.7 % (3-14); Neutrophils Absolute Auto 3200 /uL (1500-7000); Neutrophils Percent Auto 47.7 % (50-75); Platelet Count 284 X10^3/uL (150-400); Red Blood Cell Count 4.24 X10^6/uL (4.0-5.2); Red Cell Distribution Width 13.1 % (11.6-14.8); White Blood Cell Count 6.6 X10^3/uL (4.5-11.0)
[2023-09-29 11:01] LABS: Follicle Stimulating Hormone 4.82 mIU/mL
[2023-09-29 13:23] LABS: Hemoglobin A1C% w Est Avg Glu 5.1 % (4.0-6.0)
[2023-09-29 13:36] LABS: Free T3, Triiodothyronine Free 3.17 pg/mL (2.77-5.27); Free T4, Direct Thyroxine 0.97 ng/dL (0.78-2.19)
== END ==
LOC: LAB 10:13
PROVIDERS: PCP Family Medicine; Referring Provider Family Medicine; Visit Provider Family Medicine
DX: N92.6 Irregular menstruation, unspecified (principal)
CPT/HCPCS: 36415; 82672; 83001; 83036; 83525; 84402; 84403; 84439; 84443; 84481; 85025

== ENCOUNTER → 2023-10-06 10:05 | Outpatient (CLI) | payer OTHER, SELFPAY ==
--- NOTE | 2023-10-06 10:06 | DI.US.S_ITS ---
PROCEDURE: US PELVIC COMPLETE INDICATIONS: irrrgular menses TECHNIQUE: Real-time scanning was performed of the pelvic organs, with image documentation. Additional endovaginal scanning was necessary due to incomplete visualization of the adnexal and endometrial structures by transabdominal scanning. COMPARISON: None. FINDINGS: Uterus: Uterus is retroverted and enlarged in size at 9.5 x 4.8 x 6.4 cm. The myometrium is heterogeneous. No discrete uterine fibroids are seen. The endometrium measures 8.0 mm combined thickness. No gross endometrial mass or fluid is noted. Ovaries: The right ovary measures 3.5 x 1.7 x 2.0 cm, with a calculated ovarian volume of 6.3 cc. The left ovary measures 3.1 x 1.7 x 2.1 cm, with a calculated ovarian volume of 5.8 cc. The ovaries have a normal sonographic appearance. Less than 12 follicles can be seen in each ovary. No adnexal masses are seen. Other: No pathologic free abdominal or pelvic fluid. IMPRESSION: 1. Slightly heterogeneous myometrial echotexture with enlarged uterus. No discrete uterine fibroids are seen. No gross endometrial mass or fluid. 2. Normal appearing bilateral ovaries. No adnexal mass. We strive to produce accurate, complete, and clear reports of imaging services. To assist us in improving patient care, this report was composed using standard report templates and voice recognition software. Therefore, it may contain abnormal punctuation, insertions and/or omissions. Occasional wrong-word or sound-alike substitutions may occur. Though we review the report and make efforts to correct it, we do recommend that the report be read carefully in proper context to recognize any text inaccuracies. Dictated by: Kyrie Hurtado M.D. on 10/06/2023 at 14:50 Approved by: Kyrie Hurtado M.D. on 10/06/2023 at 14:52
== END ==
LOC: US 10:06
PROVIDERS: PCP Family Medicine; Referring Provider Family Medicine; Visit Provider Family Medicine
DX: N92.6 Irregular menstruation, unspecified (principal); N85.2 Hypertrophy of uterus
CPT/HCPCS: 76856

== ENCOUNTER 2024-01-14 06:33 | Day surgery (SDC) | payer OTHER, SELFPAY ==
[2024-01-11 13:45] VITALS: BMI 34.3
[2024-01-14] VITALS (10 sets, daily range): BP systolic 92–109; BP diastolic 52–87; PULSE 69–89; RESP 12–22; TEMP 36.6–36.9; O2SAT 93–98; BMI 34.3
--- NOTE | 2024-01-14 | PATH_ITS ---
[facility] Accession Number: [id number] No. of containers..01 Tissue . 01 Material submitted: . uterus - UTERUS, CERVIX . 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 Cervix with no significant histomorphologic abnormality. Endocervix with no significant histomorphologic abnormality. Secretory endometrium; negative for endometrioid intraepithelial neoplasia or malignancy. Two benign polyps (13 mm and 14 mm) present at the lower uterine segment region. Myometrium with no significant histomorphologic abnormality. Uterine serosa with no significant histomorphologic abnormality. Hemorrhagic cavity (13 x 9 x 9 mm) present in the lower uterine segment is surrounded by benign endometrial tissue. [facility] 01/18/2024 1600 Local . 01 Electronically signed: . Aniyah Dickens MD, Pathologist NPI- [id number] . 01 Gross description: . Received in formalin with two patient identifiers and uterus, cervix, is an intact uterus (153 grams, 9.2 cm superior to inferior, 7.8 cm medial to lateral, 5.0 cm anterior to posterior) with attached cervix (3.0 x 2.9 cm) with no additional adnexa. . The ectocervix is rodriguez, smooth and glistening with a circular os 0.5 cm in diameter. The serosa is rodriguez and smooth. The anterior margin is inked blue while the posterior margin is inked black. Bivalving the specimen shows a single endocervical canal with rodriguez herringbone mucosa (3.1 cm in length) descending into a septate endometrial cavity with a triangle-shaped portion of myometrium extending down through approximately half of the endometrial cavity splitting into right and left halves. The entire endometrial cavity measures 5.0 cm in length with the right and left halves both averaging 1.3 cm in diameter. Two endometrial polyps are identified within the lower shared portion of the endometrium (1.4 x 0.6 x 0.3 cm and 1.3 x 0.4 x 0.3 cm). A hemorrhagic cavity is identified within the lower uterine segment measuring 1.3 x 0.9 x 0.9 cm. The endometrium is pink-rodriguez, lush, and averages 0.4 cm thick. . The myometrium is pink-rodriguez and moderately trabecular with no lesions identified measuring up to 2.7 cm in maximum thickness. . Protection Engineer sections are submitted as follows: A1: Anterior and posterior cervix. A2: Anterior full thickness section to show septation with right and left endometrial cavities. A3: Posterior full thickness section to show septation in right and left endometrial cavities. A4: Endometrial polyps. A5: Hemorrhagic cavity. Photographs taken. ([id number]) /MRV 01/15/2024 [facility] Local . 01 Pathologist provided ICD-10: N80.03, N92.0 . 01 CPT . 260459 Specimen Comment: A courtesy copy of this report has been sent to [phone] Performed at: [address] [facility] [address], [place], [place] [id number] MD Salvador Medellin MD Phone: [phone]
[2024-01-14] MEDS: ACETAMINOPHEN 325 MG TABLET 975 MG PO (07:05)
[2024-01-14] MEDS: LACTATED RINGERS 1,000 ML 42 ML IV (07:06)
--- NOTE | 2024-01-14 07:31 | PM.PREOP ---
Pre-operative Note COVID-19 COVID-19 status: Not tested Interval Note History & Physical reviewed/Exam performed by Physician: Yes Changes to H&P: No
[2024-01-14] MEDS: SCOPOLAMINE 1 PATCH TOP (07:40)
[2024-01-14] MEDS: CEFAZOLIN 2 GM/100 ML PREMIX 100 ML IV (07:54)
--- NOTE | 2024-01-14 08:29 | SUR.OPER ---
Lithotomy on padded OR bed. [place] Pad Positioner under torso. Head on pillow, arms padded and tucked at sides. Legs secured in padded yellow fins stirrups.
[2024-01-14] MEDS: BUPIVACAINE 0.5% (PF) 30 ML, EPINEPHrine 0.15 MG INJ (08:44)
[2024-01-14] MEDS: ROPIVACAINE 0.2% PF 2 MG/ML 10ML AMP 10 ML INJ (09:12)
--- NOTE | 2024-01-14 09:44 | P.OP_ITS ---
Operative Date/Time/Diagnoses Date of procedure: 01/14/24 Time of procedure: 08:15 Pre-op diagnosis: Menorrhagia Dysmenorrhea Adenomyosis (presumptive diagnosis) Post-op diagnosis: same Procedure & Clinicians Procedure: Procedures Operation Date: 01/14/24 07:45 Actual Procedure Side Surgeon p Laparoscopic Total Hysterectomy Not Applicable Mark Palma MD Indications: Sada is a 33-year-old whose 2nd section with bilateral salpingectomy was performed in April 2022, presents today with a six-month history of generally regular but extremely heavy periods lasting 10-12 days. She typically experiences a couple of days of spotting prior to the onset of her period and a couple of more days of spotting afterwards. These periods are associated with severe cramping, and passage of clots. Recent pelvic ultrasound performed 10/06/2023 shows: FINDINGS: Uterus: Uterus is retroverted and enlarged in size at 9.5 x 4.8 x 6.4 cm. The myometrium is heterogeneous. No discrete uterine fibroids are seen. The endometrium measures 8.0 mm combined thickness. No gross endometrial mass or fluid is noted. Ovaries: The right ovary measures 3.5 x 1.7 x 2.0 cm, with a calculated ovarian volume of 6.3 cc. The left ovary measures 3.1 x 1.7 x 2.1 cm, with a calculated ovarian volume of 5.8 cc. The ovaries have a normal sonographic appearance. Less than 12 follicles can be seen in each ovary. No adnexal masses are seen. Other: No pathologic free abdominal or pelvic fluid. IMPRESSION: 1. Slightly heterogeneous myometrial echotexture with enlarged uterus. No discrete uterine fibroids are seen. No gross endometrial mass or fluid. 2. Normal appearing bilateral ovaries. No adnexal mass. We have previously discussed a variety of hormonal therapies, endometrial ablation, use of a Mirena IUD, as well as hysterectomy. She and her have talked and she has numerous questions about what she has read regarding Mirena IUD insertion, complications, and side-effects. Most important for her in that discussion however is the fact that no assurance can be made that its use would resolve her symptoms. 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 Since she and her are transferring to [place] in the early part of 2024 she would instead prefer to explore definitive treatment. We had another discussion regarding options and after those discussions, patient would like to proceed with total laparoscopic hysterectomy. Patient has previously undergone bilateral salpingectomy. She presents today for her scheduled surgery. Surgeon: Mark Palma Instrument Specialist: Sepideh Rosenthal Anesthesia Type: General Operative Notes Findings: Uterus is upper limits of normal size with a shape suggestive of a bicornuate uterus. Neither anterior or posterior cul-de-sacs reveal any abnormality and there was no endometriosis seen in the pelvis. Fallopian tubes are surgically absent on both sides. The remainder of the pelvis and abdomen are normal to laparoscopic inspection. Closure Type: primary Specimen(s): uterus Applied: catheter Estimated blood loss (mL): 75 Blood products transfused: none Procedure in detail: With the patient in modified dorsal lithotomy position preparations were made by prepping and draping the patient in usual manner for vaginal surgery and insertion of Guevara catheter. A pre-surgical time-out was then taken in accordance with [facility] policy. A bivalve speculum was then placed in the vagina and the cervix visualized. The anterior lip of the cervix was then grasped with a single-tooth tenaculum. The uterus was sounded to [] cm, the endocervical canal dilated slightly, and a VCare uterine manipulator with a medium colpotomy cup was placed. The umbilicus was then infiltrated with 0.5% Marcaine with epinephrine. A 1 cm umbilical incision was made transversely and a Veress needle was used to insufflate the abdominal cavity with carbon dioxide. Once the abdomen was appropriately insufflated, a 5 mm trocar and sleeve were then placed through the umbilical incision. The scope was placed through the trocar and the initial assessment of the intra-abdominal contents carried out. A 2nd and 3rd 5 mm port was then placed 1st in the right mid quadrant from then the left mid quadrant by infiltration of the skin and subcutaneous tissues, a 1 cm transverse incision and insertion of the 5 mm bladeless port. Using a 3 puncture technique, the abdomen and pelvis were inspected laparoscopy and photographically documented. Uterus is mobilized with the VCare manipulator and dissection was then carried down using the PowerSeal device so as to divide the utero-ovarian ligament and the round ligament with blunt and sharp dissection of the broad down to the level of the uterine artery. The uterine artery was then skeletonized after development of a bladder flap, coagulated, and divided. Once hemostasis was assured on the left side attention was turned to the right and the utero-ovarian ligament, round ligament, and broad ligament were dissected in a fashion exactly the same as it had been on the left. The right uterine artery was then visualized after skeletonization and coagulated and divided. The uterus was seen to froy after coagulation of both your arteries and the cup was identified through the vaginal muscularis at its insertion with the body of the cervix. Circumferential excision of the vaginal cup was accomplished without difficulty using monopolar current and the uterus mobilized. The uterus was then removed through the vagina and the v aginal cuff closed [id number] with a series of 0 Vicryl [id number] stitches. Hemostasis was excellent, the abdomen was re-insufflated, and the pelvis inspected laparoscopically. 10 cc of ropivacaine was instilled into the pelvis. The pelvis was inspected for any abnormality or bleeding, and the ureters were each seen to be peristalsing freely. With complete hemostasis assured, the pneumoperitoneum was vented and the ports removed. All of the 5 mm ports were then closed with 4-0 Monocryl on the skin using inverted interrupted sutures. Skin glue was placed and after the glue was dried, an appropriate dressing was applied. The case was then terminated, the patient awakened, and then transferred to PACU after having tolerated the procedure well. Complications: none Post-operative Condition: stable Disposition: PACU Plan for aftercare: Recovery in ambulatory surgery in discharge home later today if pain is under control and she is tolerating oral intake well.
--- NOTE | 2024-01-14 10:29 | PC.NURSE ---
Patient in room 2 from PACU. VSS. LR infusing. A and O x3. at bedside.
--- NOTE | 2024-01-14 10:45 | PC.NURSE ---
3 lap sites, CDI. Covered w/ gauze and tegaderm. Guevara in place, patent.
[2024-01-14] MEDS: LACTATED RINGERS 500 ML 21 ML IV (16:13)
[2024-01-14] MEDS: KETOROLAC 30 MG/ML VIAL IV ×2 (16:14→22:08)
[2024-01-15] MEDS: ACETAMINOPHEN 325 MG TABLET 650 MG PO ×2 (01:39→08:16)
[2024-01-15] MEDS: KETOROLAC 30 MG/ML VIAL IV (04:38)
[2024-01-15 06:46] LABS: Add Manual Diff / Slide Review NO; Basophils Absolute Auto 100 /uL (0-100); Basophils Percent Auto 0.5 % (0-2); Eosinophils Absolute Auto 0 /uL (0-450); Eosinophils Percent Auto 0.2 % (2-4); Hemoglobin 12.3 g/dL (12.0-16.0); Lymphocytes Absolute Auto 3600 /uL (1100-4500); Lymphocytes Percent Auto 25.9 % (25-40); Mean Corpuscular HGB Conc 33.1 % (30-36); Mean Corpuscular Hemoglobin 28.9 PG (26-34); Mean Corpuscular Volume 87.3 fL (80-100); Monocytes Absolute Auto 800 /uL (0-900); Monocytes Percent Auto 5.9 % (3-14); Neutrophils Absolute Auto 9300 /uL (1500-7000); Neutrophils Percent Auto 67.5 % (50-75); Platelet Count 276 X10^3/uL (150-400); Red Blood Cell Count 4.24 X10^6/uL (4.0-5.2); Red Cell Distribution Width 13.1 % (11.6-14.8); White Blood Cell Count 13.8 X10^3/uL (4.5-11.0)
--- NOTE | 2024-01-15 07:24 | P.DS_ITS ---
History of Present Illness History of Present Illness Date Patient Seen: 01/15/24 Time Patient Seen: 07:25 Chief complaint: Laparoscopic Total Hysterectomy Narrative: Sada is a 33-year-old whose 2nd section with bilateral salpingectomy was performed in April 2022, presents today with a six-month history of generally regular but extremely heavy periods lasting 10-12 days. She typically experiences a couple of days of spotting prior to the onset of her period and a couple of more days of spotting afterwards. These periods are associated with severe cramping, and passage of clots. Recent pelvic ultrasound performed 10/06/2023 shows: FINDINGS: Uterus: Uterus is retroverted and enlarged in size at 9.5 x 4.8 x 6.4 cm. The myometrium is heterogeneous. No discrete uterine fibroids are seen. The endometrium measures 8.0 mm combined thickness. No gross endometrial mass or fluid is noted. Ovaries: The right ovary measures 3.5 x 1.7 x 2.0 cm, with a calculated ovarian volume of 6.3 cc. The left ovary measures 3.1 x 1.7 x 2.1 cm, with a calculated ovarian volume of 5.8 cc. The ovaries have a normal sonographic appearance. Less than 12 follicles can be seen in each ovary. No adnexal masses are seen. Other: No pathologic free abdominal or pelvic fluid. IMPRESSION: 1. Slightly heterogeneous myometrial echotexture with enlarged uterus. No discrete uterine fibroids are seen. No gross endometrial mass or fluid. 2. Normal appearing bilateral ovaries. No adnexal mass. We have previously discussed a variety of hormonal therapies, endometrial ablation, use of a Mirena IUD, as well as hysterectomy. She and her have talked and she has numerous questions about what she has read regarding Mirena IUD insertion, complications, and side-effects. Most important for her in that discussion however is the fact that no assurance can be made that its use would resolve her symptoms. 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 Since she and her are transferring to [place] in the early part of 2024 she would instead prefer to explore definitive treatment. We had another discussion regarding options and after those discussions, patient would like to proceed with total laparoscopic hysterectomy. Patient has previously undergone bilateral salpingectomy. She presents today for her scheduled surgery. Discharge Providers Provider Date of admission: 01/14/2024 Discharge Date: 01/15/24 Primary care physician: Eliane Brand MD Discharge provider: Mark Palma MD Summary Hospital Course Discharge Diagnosis: Menorrhagia Dysmenorrhea Adenomyosis (Presumptive Dx) Hospital Course: Sada was admitted on 01/14/2024 and underwent an uneventful total laparoscopic hysterectomy. Full details of the procedure well summarized on my operative note of that date. Following surgery the patient has done extremely well with prompt return of bowel and bladder function, she is ambulating independently, tolerating a regular diet, and her pain is well controlled with oral pain medications. She will be discharged at this time to home in an afebrile normotensive condition after counseling regarding precautionary symptoms, limitations activity, medications, and plans for follow-up which will be in 2 weeks. Medications at discharge will include resumption of any preadmission medications as well as oxycodone 5 mg p.o. q.6 hours as needed for pain, 12., and Cipro 500 mg p.o. b.i.d. x5 days for UTI prophylaxis following catheterization. Status at Discharge Cognitive/behavioral status at discharge: oriented Functional status at discharge: independent ambulation Overall status at discharge: patient is progressing back to baseline Time Spent with Patient Time spent: Less than 30 minutes Exam Vital Signs (past 8 hours): Oxygen Delivery Method Room Air Const General: cooperative and comfortable Nutritional Appearance: average body habitus Orientation: alert and oriented x3 HENMT Head: normal to inspection, atraumatic and abrasion Ears: hearing grossly normal bilaterally Face and sinus: face symmetric Eyes General: appearance normal, both eyes and all related structures Conjunctivae: conjunctivae normal Sclera: sclerae normal EOM: EOM intact bilaterally Neck Neck: normal visual inspection Resp Effort & Inspection: normal respiratory effort and able to speak in complete sentences Auscultation: clear to auscultation bilaterally Cardio Rate: regular rate Rhythm: regular rhythm Heart Sounds: S1 normal, S2 normal and no murmurs GI Inspection: normal to inspection and incision (Surgical dressings clean and dry) Palpation: soft, no hepatosplenomegaly and tender (Mild, diffuse postsurgical tenderness) External Female Exam: other (No significant bleeding noted) Extrem General: no calf tenderness Psych Appearance: grossly normal Mental Status: mental status grossly normal Speech and Movement: speech and movement normal Mood: congruent mood Affect: normal affect Attitude: cooperative Thought Process: normal Thought Content: normal Judgment: judgment good Objective Labs 01/15/24 06:33 Labs: Laboratory Results - last 24 hr 01/15/24 06:33 WBC 13.8 H RBC 4.24 Hgb 12.3 Hct 37.0 MCV 87.3 MCH 28.9 MCHC 33.1 RDW 13.1 Plt Count 276 Neut % (Auto) 67.5 Lymph % (Auto) 25.9 [place] % (Auto) 5.9 Eos % (Auto) 0.2 L Baso % (Auto) 0.5 Neut # (Auto) 9300 H Lymph # (Auto) 3600 [place] # (Auto) 800 Eos # (Auto) 0 Baso # (Auto) 100 PFSH Medical History (Updated 11/17/23 @ 13:29 by Mark Palma MD) Infection of toenail Eczema Breast lump in female Vision disorder Measles (~1988) Chicken pox (~1992) Surgical History (Updated 01/11/24 @ 13:54 by Jessi Garrido RN) H/O bilateral salpingectomy (04/2022) Hx of section delivery delivered (~07/01/19) Anesthesia History of tonsillectomy and adenoidectomy (~1993) History of removal of cyst (~2016) [place] teeth removed (~2004) Family History (Updated 10/03/21 @ 13:12 by Makayla Clement RN) Mother Endometriosis Asthma Hypothyroid Celiac disease Grandmother Breast cancer Sister Thyroid cancer Grandfather Diabetes mellitus Family/Other Melanoma Father Skin cancer Social History marital status: number of children: 1 household members: spouse and children lives independently: Yes housing: house pets and animals: Yes (1 dog, aware of toxo) education level: college occupational status: employed current occupational exposures/hazards: No special polo needs: No travel history: recent seatbelt use: always helmet use: Yes water heater temp set < 120 deg: Yes working smoke detector in home: Yes fire extinguisher in home: Yes carbon monox detector in home: Yes firearms in home: Yes firearms unloaded and locked: Yes do you feel safe at home: Yes Smoking Status: Never smoker second hand exposure: No alcohol intake: current substance use type: does not use during the past year weight has: increased > 10 lbs well-balanced diet: daily or most days daily servings fruits/ve-4 caffeine: Yes Type(s) of exercise: walking and weight lifting frequency: 3-4 times per week Discharge Assessment & Plan Assessment and Plan Assessment: Menorrhagia Dysmenorrhea Adenomyosis (Presumptive Dx) Plan of Treatment: Routine postoperative care with follow-up planned for 2 weeks postop Discharge Plan Discharge Plan Patient Disposition: Home Provider Discharge Comment: Please review the written instructions you received when you were discharged from the hospital. Your follow-up appointment will be scheduled for 2 weeks after your surgery and I look forward to seeing you then. If however Discharge orders & Medications Discharge Orders: Discharge (Order); Ordered 01/15/24 Ordered By: Mark Palma Prescriptions: Continued Super Twin EPA-DHA 1,250 mg capsule 1,250 mg PO DAILY prenat.vits,jessica,eib-ynnz-lokbv Tablet 1 tab PO DAILY Follow up/Referrals: Eliane Brand MD [Primary Care Provider] - Mark Palma MD [Physician] - Diet/Activity/Treatments Diet: Diet as Tolerated Activity: As tolerated Other treatments: [id number]-zidauum Tylenol and/or ibuprofen may be used for additional pain relief. Pwhq-dty-[id number] stool softeners and/or MiraLax may be used as needed for constipation. Skin/Wound/Dressing Care Report to your healthcare provider any signs of infection, such as:: chills, fever, increased pain and unusual redness Dressing: Dressing should be removed on the morning 01/16/2000 Visit Report/Discharge Packet Instructions: DI for Hysterectomy, DI for Laparoscopy, Hysterectomy -- Laparoscopic Surgery, DI for Prescription Opioid Use Stand Alone Forms: Stroke Signs & Symptoms, Surgery Discharge Print Language: [place] Discharge Data Primary Care Provider: Eliane Brand Attending Provider: Mark Palma Quality VTE Deep Vein Thrombosis/Pulmonary Embolism Present on Admission: No
[2024-01-15 08:16] VITALS: BP 100/61; PULSE 60; RESP 16; TEMP 36.7
--- NOTE | 2024-01-15 09:59 | PC.NURSE ---
01/15/2024 @[id number] RN reviewed DC instructions w/ pt and post operative cares, concerns, and complications and when to call provider. Patient verbalized understanding and has no further questions at this time. Pt consumed breakfast and ambulated off unit w/ @2445.
--- NOTE | 2024-01-15 10:13 | PC.NURSE ---
01/15/2024 RN assessed surgical dressings @0817 and noted dressings were clean, dry, and intact and noted no drainage. PT tolerated well and stated she felt soreness in her abdomen occasionally.
== END 2024-01-15 09:15 | disposition home or self-care (01) ==
LOC: OR 06:34 → AC 06:34 → LABOR 10:09
PROVIDERS: PCP Family Medicine; Referring Provider Obstetrics & Gynecology; Visit Provider Obstetrics & Gynecology
PROC: 0UT94ZZ Resection of Uterus, Percutaneous Endoscopic Approach (ICD-10-PCS; CPT 58570; principal; 2024-01-14 07:45)
DX: N92.0 Excessive and frequent menstruation with regular cycle (principal); N94.6 Dysmenorrhea, unspecified; Q51.3 Bicornate uterus; N84.0 Polyp of corpus uteri
CPT/HCPCS: 58570; 36415; 81025; 85025; J0171; J0330; J0690; J1100; J1885; J2250; J2405; J2704; J2795; J3010; J3490